=== PATIENT | male | born 1925 | race Caucasian/White ===

== ENCOUNTER → 2017-09-25 | Outpatient (CLI) | payer MEDICARE ==
[~2017-09-25] MED LIST: ASPI325 PO; ATOR10; Aspir 8181 MG PO; CITA20 PO; DIPH50 PO; DRON5 PO; ESCI20 PO; HYDCHL25 PO; Lisinopril2.5 MG PO; METO25ER PO; PRAV20 PO; ROSU10TA PO; TAMS.4ER PO
== END | disposition home or self-care (01) ==
LOC: LAB SHORT 14:05 → PLD 14:05
DX: C44.622 Squamous cell carcinoma of skin of right upper limb, including shoulder (principal); C44.229 Squamous cell carcinoma of skin of left ear and external auricular canal
CPT/HCPCS: 88305